=== PATIENT | male | born 1970 | race Caucasian/White ===

== ENCOUNTER 2017-04-19 07:02 | Day surgery (SDC) | payer BC ==
[~2017-04-19 07:02] MED LIST: Midazolam 1 MG/ML 2 ML SDV ONE; fentaNYL 100 MCG/2 ML SDV ONE
[2017-04-19] MEDS ORDERED: Midazolam 1 MG/ML 2 ML SDV IV ONE ×7 (07:03→08:48)
[2017-04-19] MEDS ORDERED: fentaNYL 100 MCG/2 ML SDV IV ONE ×3 (07:03→08:41)
[2017-04-19] MEDS ORDERED: Dextrose 5%-0.45% NaCl 1,000 ML IV SCH (07:45)
[2017-04-19 10:49] VITALS: BP 118/68
--- NOTE | 2017-04-19 12:58 | OR ---
DATE: 04/19/2017 PROCEDURE: Total colonoscopy and multiple pinch biopsies. INSTRUMENT USED: CF-H180 AL Olympus video colonoscope. PREMEDICATIONS: Fentanyl 100 mcg intravenous, Versed 4 mg intravenous, and nasal O2 cannula. The procedure was done under pulse oximetry, BP recording, and senior radiation protection technician. INDICATION: The patient with longstanding ulcerative colitis on therapy. Surveillance colonoscopic examination is done for detection of any polypoid lesions and removal, biopsies to be obtained for any evidence of dysplasia, endoscopic hemostasis therapy if needed. DESCRIPTION OF PROCEDURE: Initial rectal exam was unremarkable. Rigid anoscopy was normal. The colonoscope was passed with ease to the ileocecal area. Photographs were taken of the normal-appearing cecum, identified by double- bulged ileocecal folds. No bleeding was noted from any of the visualized areas at the commencement of the examination. No stricture. No vascular ectasia. No large isolated ulcerations seen. No evidence of diffuse inflammatory bowel disease in the form of friability, contact bleeding, or ulcerations. No polyp or tumor mass identified. Probing the proximal sides of folds and flexures, using adequate distention and clearing up the stool material, withdrawal of the scope was made. Four-quadrant biopsies were taken at 10 cm distance apart from cecum to rectum, tissues obtained, pooled into batch #1, cecum and ascending colon, #2 transverse colon, #3 descending colon, and #4 rectosigmoid and sent for any histopathologic evidence of dysplasia. No bleeding was noted from any of the visualized areas at the completion of examination. IMPRESSION: Ulcerative colitis. The patient tolerated the procedure well. [facility] /[id number]
== END 2017-04-19 10:50 | disposition home or self-care (01) ==
LOC: DL.ENDO 07:02
PROVIDERS: ATTEND Internal Medicine Gastroenterology
DX: Z12.11 Encounter for screening for malignant neoplasm of colon (principal); K51.90 Ulcerative colitis, unspecified, without complications; E11.9 Type 2 diabetes mellitus without complications; E66.09 Other obesity due to excess calories; Z68.41 Body mass index [BMI] 40.0-44.9, adult
CPT/HCPCS: 45380; J2250; J3010; J7042

== ENCOUNTER 2019-04-20 05:25 | Day surgery (SDC) | payer BC ==
[2019-04-20] MEDS ORDERED: Midazolam 1 MG/ML 2 ML SDV IV ONE ×7 (05:26→06:38)
[2019-04-20] MEDS ORDERED: fentaNYL 100 MCG/2 ML SDV IV ONE ×3 (05:26→06:31)
[2019-04-20] MEDS ORDERED: Sodium Chloride 0.9% 10 ML Syringe FLUSH PRN (06:00)
[2019-04-20] MEDS ORDERED: Dextrose 5%-0.45% NaCl 1,000 ML IV SCH (06:00)
[2019-04-20] MEDS ORDERED: fentaNYL 100 MCG/2 ML SDV ONE (06:18)
[2019-04-20] MEDS ORDERED: Midazolam 1 MG/ML 2 ML SDV ONE (06:18)
--- NOTE | 2019-04-20 07:23 | OR ---
DATE: 04/20/2019 PROCEDURES: Total colonoscopy and multiple pinch biopsies. INSTRUMENT USED: CF-EV350S Olympus video colonoscope. PREMEDICATIONS: Fentanyl 100 mcg intravenous, Versed 4 mg intravenous, nasal O2 cannula. The procedure was done under pulse oximetry, BP recording, and classroom monitor. INDICATIONS: The patient with longstanding ulcerative colitis. Surveillance colonoscopic examination is done for detection of any polypoid lesions and removal, biopsies to be obtained for any evidence of dysplasia, endoscopic hemostasis therapy if needed. DESCRIPTION OF PROCEDURE: Initial rectal exam was unremarkable. Rigid anoscopy was normal. The colonoscope was passed with ease up to the ileocecal area. Photographs were taken of the normal-appearing cecum, identified by double- bulged ileocecal folds. No bleeding was noted from any of the visualized areas at the commencement of the examination. The bowel preparation was found to be adequate, [place] scale 3 in all the areas except for left colon, scale 2. No stricture. No vascular ectasia. No large isolated ulcerations seen. No evidence of diffuse inflammatory bowel disease in the form of friability, contact bleeding, or ulcerations. No polyp or tumor mass identified. Probing the proximal sides of folds and flexures using adequate distention and clearing up the stool material, withdrawal of the scope was made. Four-quadrant biopsies were taken at 10 cm apart from the proximal to distal colon, tissues obtained were pulled into bags #1 cecum and ascending colon, #2 transverse colon, #3 descending colon, and #4 rectosigmoid. No bleeding was noted from any of the visualized areas at the completion of examination. IMPRESSION: Ulcerative colitis. The patient tolerated the procedure well. [facility] /[id number]
[2019-04-20 08:51] VITALS: BP 117/61; PULSE 72
== END 2019-04-20 08:56 | disposition home or self-care (01) ==
LOC: DL.ENDO 05:25
PROVIDERS: ATTEND Internal Medicine Gastroenterology
DX: Z12.11 Encounter for screening for malignant neoplasm of colon (principal); K51.90 Ulcerative colitis, unspecified, without complications; E11.9 Type 2 diabetes mellitus without complications; E78.5 Hyperlipidemia, unspecified; E66.09 Other obesity due to excess calories; F41.1 Generalized anxiety disorder; Z68.41 Body mass index [BMI] 40.0-44.9, adult
CPT/HCPCS: 45380; J2250; J3010; J7042

== ENCOUNTER 2021-05-05 06:23 | Day surgery (SDC) | payer BC ==
[~2021-05-05 06:23] MED LIST changes: +Sodium Chloride 0.9% 10 ML Syringe FLUSH PRN
[2021-05-05] MEDS ORDERED: Midazolam 1 MG/ML 2 ML SDV IV ONE ×7 (06:24→07:52)
[2021-05-05] MEDS ORDERED: fentaNYL 100 MCG/2 ML SDV IV ONE ×3 (06:24→07:42)
[2021-05-05] MEDS: Dextrose 5%-0.45% NaCl 1,000 ML IV SCH ×2 (06:49→07:00)
--- NOTE | 2021-05-05 09:36 | OR ---
DATE: 05/05/2021 PROCEDURES: Total colonoscopy, narrow band imaging, and multiple pinch biopsies. INSTRUMENT USED: CF-GU892L Olympus video colonoscope. PREMEDICATIONS: Fentanyl 100 mcg intravenous, Versed 4 mg intravenous. Nasal O2 cannula. The procedure was done under pulse oximetry, BP recording, and sprayer auto parts. INDICATION: Longstanding ulcerative colitis, on therapy. Surveillance colonoscopic examination is done for detection of any polypoid lesions and removal, biopsies to be obtained for any evidence of dysplasia, endoscopic hemostasis therapy if needed. DESCRIPTION OF PROCEDURE: Initial rectal exam was unremarkable. Rigid anoscopy was normal. The colonoscope was passed with ease up to the ileocecal area. Photographs were taken of the normal-appearing rectum and cecum. No bleeding was noted from any of the visualized areas at the commencement of the examination. The bowel preparation was found to be adequate, [place] scale 2 in right colon, 3 in transverse and left colon, [place] total score 8. No stricture. No vascular ectasia. No large isolated ulcerations seen. No evidence of diffuse inflammatory bowel disease in the form of friability, contact bleeding, or ulcerations. No polyp or tumor mass identified. Probing the proximal sides of folds and flexures using adequate distention and clearing up the stool material, withdrawal of the scope was made. Four-quadrant biopsies were taken at 10 cm distance apart and pooled into bags 1. Cecum and ascending colon. 2. Transverse colon. 3. Descending colon. 4. Rectosigmoid. No bleeding was noted from any of the visualized areas at the completion of examination. IMPRESSION: Ulcerative colitis. The patient tolerated the procedure well. [facility] /[id number] [place]
[2021-05-05 10:32] VITALS: BP 125/55; PULSE 84
== END 2021-05-05 10:18 | disposition home or self-care (01) ==
LOC: DL.ENDO 06:23
PROVIDERS: ATTEND Internal Medicine Gastroenterology
DX: K52.9 Noninfective gastroenteritis and colitis, unspecified (principal)
CPT/HCPCS: J2250; J3010; J7042

== ENCOUNTER 2022-05-04 05:55 | Day surgery (SDC) | payer BC ==
[~2022-05-04 05:55] MED LIST changes: -Midazolam 1 MG/ML 2 ML SDV ONE; -Sodium Chloride 0.9% 10 ML Syringe FLUSH PRN; +Sodium Chloride 0.9% 10 ML Syringe FLUSH SCH; -fentaNYL 100 MCG/2 ML SDV ONE
[2022-05-04] MEDS ORDERED: Midazolam 1 MG/ML 2 ML SDV IV ONE ×7 (05:56→07:17)
[2022-05-04] MEDS ORDERED: fentaNYL 100 MCG/2 ML SDV IV ONE ×4 (05:56→07:20)
[2022-05-04] MEDS ORDERED: Midazolam 1 MG/ML 2 ML SDV ONE (06:08)
[2022-05-04] MEDS ORDERED: fentaNYL 100 MCG/2 ML SDV ONE (06:09)
[2022-05-04] MEDS ORDERED: Sodium Chloride 0.9% 10 ML Syringe FLUSH PRN (06:30)
[2022-05-04] MEDS ORDERED: Dextrose 5%-0.45% NaCl 1,000 ML IV SCH (06:30)
[2022-05-04 09:30] VITALS: BP 110/67; PULSE 70
== END 2022-05-04 09:05 | disposition home or self-care (01) ==
LOC: DL.ENDO 05:55
PROVIDERS: ATTEND Internal Medicine Gastroenterology
DX: K51.90 Ulcerative colitis, unspecified, without complications (principal); E66.09 Other obesity due to excess calories; E78.5 Hyperlipidemia, unspecified; E11.9 Type 2 diabetes mellitus without complications; D50.9 Iron deficiency anemia, unspecified
CPT/HCPCS: 45380; J2250; J3010; J7042

== ENCOUNTER 2023-04-25 05:57 | Day surgery (SDC) | payer BC ==
[2023-04-25] MEDS ORDERED: Midazolam 1 MG/ML 2 ML SDV IV ONE ×6 (05:58→07:16)
[2023-04-25] MEDS ORDERED: fentaNYL 100 MCG/2 ML SDV IV ONE ×3 (05:58→07:10)
[2023-04-25] MEDS ORDERED: Dextrose 5%-0.45% NaCl 1,000 ML IV SCH (06:00)
[2023-04-25] MEDS ORDERED: Midazolam 1 MG/ML 2 ML SDV ONE (06:07)
[2023-04-25] MEDS ORDERED: fentaNYL 100 MCG/2 ML SDV ONE (06:08)
[2023-04-25 08:35] VITALS: BP 112/62; PULSE 86
== END 2023-04-25 09:05 | disposition home or self-care (01) ==
LOC: DL.ENDO 05:57
PROVIDERS: ATTEND Internal Medicine Gastroenterology
DX: K51.90 Ulcerative colitis, unspecified, without complications (principal); E11.9 Type 2 diabetes mellitus without complications; E78.00 Pure hypercholesterolemia, unspecified; E66.09 Other obesity due to excess calories; Z68.35 Body mass index [BMI] 35.0-35.9, adult; Z79.4 Long term (current) use of insulin; Z79.85 Long-term (current) use of injectable non-insulin antidiabetic drugs; Z79.899 Other long term (current) drug therapy
CPT/HCPCS: J2250; J3010; J7042

== ENCOUNTER 2024-05-08 05:50 | Day surgery (SDC) | payer BC ==
[2024-05-08] MEDS ORDERED: Midazolam 1 MG/ML 2 ML SDV IV ONE (05:51)
[2024-05-08] MEDS ORDERED: fentaNYL 100 MCG/2 ML SDV IV ONE (05:51)
[2024-05-08] MEDS ORDERED: Midazolam 1 MG/ML 2 ML SDV ONE (06:00)
[2024-05-08] MEDS ORDERED: fentaNYL 100 MCG/2 ML SDV ONE (06:01)
[2024-05-08] MEDS: fentaNYL 100 MCG/2 ML SDV IV ONE ×2 (06:54)
[2024-05-08] MEDS: Midazolam 1 MG/ML 2 ML SDV IV ONE ×6 (06:55→07:01)
[2024-05-08] MEDS: Dextrose 5%-0.45% NaCl 1,000 ML IV SCH (07:10)
[2024-05-08 07:52] VITALS: BP 112/66; PULSE 63
== END 2024-05-08 08:14 | disposition home or self-care (01) ==
LOC: DL.ENDO 05:50
PROVIDERS: ATTEND Internal Medicine Gastroenterology
DX: K51.90 Ulcerative colitis, unspecified, without complications (principal); E11.9 Type 2 diabetes mellitus without complications; E66.09 Other obesity due to excess calories; Z68.34 Body mass index [BMI] 34.0-34.9, adult
CPT/HCPCS: 45380; J2250; J3010; J7799